=== PATIENT | male | born 1980 ===

== ENCOUNTER 2023-03-19 14:53 | Inpatient (IN) | payer OTHER ==
[~2023-03-19] VITALS: Ht 167.6 cm; Wt 68.9 kg
[2023-03-20] MEDS ORDERED: UROXATRAL10 MG PO (10:55)
== END 2023-03-27 17:49 | disposition home or self-care (01) | DRG 330 ==
LOC: SURG 03-25 08:45 → O/R 03-25 11:48 → SURG 03-25 19:47 → O/R 03-25 20:25 → SURH 03-25 21:47 → SURG 03-26 16:57
PROVIDERS: ADMIT Colon & Rectal Surgery; ATTEND Colon & Rectal Surgery
PROC: 0DBP4ZZ Excision of Rectum, Percutaneous Endoscopic Approach (ICD-10-PCS; 2023-03-25)
PROC: 0DJD8ZZ Inspection of Lower Intestinal Tract, Via Natural or Artificial Opening Endoscopic (ICD-10-PCS; 2023-03-25)
PROC: 0DTN4ZZ Resection of Sigmoid Colon, Percutaneous Endoscopic Approach (ICD-10-PCS; principal; 2023-03-25 11:00)
DX: K57.20 Diverticulitis of large intestine with perforation and abscess without bleeding (principal); K92.1 Melena; Z20.822 Contact with and (suspected) exposure to COVID-19